=== PATIENT | female | born 1970 ===

== ENCOUNTER 2021-01-08 16:36 | Outpatient (REF) | payer MEDICAID, SELFPAY ==
[2021-01-08 21:07] LABS: ALT 22 U/L (14-59); AST 14 U/L (15-37); Albumin 4.2 g/dL (3.4-5.0); Alkaline Phosphatase 77 U/L (46-116); Anion Gap 10.3 mmol/L (3-11); BUN 12 mg/dL (7-18); Bilirubin, Total 0.4 mg/dL (0.2-1.0); CO2 23.7 mmol/L (21.0-32.0); CREATININE 0.9 mg/dL (0.55-1.02); Calcium 9.4 mg/dL (8.5-10.1); Calculated LDL 116 mg/dL (<100); Chloride 107 mmol/L (98-107); Cholesterol 190 mg/dL (<200); Glucose 94 mg/dL (74-106); HDL Cholesterol 54 mg/dL (40-60); Potassium 4.5 mmol/L (3.5-5.1); Sodium 141 mmol/L (136-145); Total Protein 7.9 g/dL (6.4-8.2); Triglyceride 102 mg/dL (<150)
[2021-01-11 11:10] LABS: HIV-1/2 Ag & Ab Screen Negative (Negative)
[2021-01-11 11:11] LABS: Hepatitis C Ab w Rflx HCV PCR Negative (Negative)
== END 2021-01-08 16:37 | disposition home or self-care (01) ==
LOC: NCHCN 16:36
PROVIDERS: Visit Provider Registered Nurse
DX: Z13.220 Encounter for screening for lipoid disorders (principal); Z13.228 Encounter for screening for other metabolic disorders; Z11.3 Encounter for screening for infections with a predominantly sexual mode of transmission; Z11.59 Encounter for screening for other viral diseases; Z11.4 Encounter for screening for human immunodeficiency virus [HIV]; Z00.00 Encounter for general adult medical examination without abnormal findings
CPT/HCPCS: 80053; 80061; 86803; 87389

== ENCOUNTER 2023-04-18 16:22 | Outpatient (REF) | payer MEDICAID, SELFPAY ==
[2023-04-20 10:56] LABS: HIV-1/2 Ag & Ab Screen Negative (Negative)
[2023-04-20 12:49] LABS: HBs Antibody, Qual Positive (See Note); HBs Antibody, Quant 11.4 mIU/mL (See Note); Hepatitis B Core Antibody Negative (Negative); Hepatitis B surface Ag Negative (Negative); Hepatitis C Ab w Rflx HCV PCR Negative (Negative)
[2023-04-20 13:23] LABS: Chlamydia Result Negative (Negative); GC Result Negative (Negative)
== END 2023-04-18 16:23 | disposition home or self-care (01) ==
LOC: NCHCN 16:22
PROVIDERS: PCP Family Medicine; Visit Provider Family Medicine
DX: Z11.3 Encounter for screening for infections with a predominantly sexual mode of transmission (principal)
CPT/HCPCS: 86704; 86706; 86803; 87340; 87389; 87491; 87591